=== PATIENT | female | born 1955 | race Caucasian/White ===

== ENCOUNTER 2016-12-18 16:50 | Emergency (ER) | payer BC ==
[~2016-12-18 16:50] MED LIST: *UNABLE1; ASAB PO; ATEN25 PO; BRILINTA90 MG PO; COREG3 PO; FISH-EPA1000 MG PO; FLONASE NAS; GLUCPH8 PO; GOODY'S BODY P1 EACH PO; KLOR-CON M2020 MEQ PO; KLOR-CON20 MEQ PO; L80 PO; LEVEMIR SC; LIOR10 PO; MAGOX4 PO; NEUR300 PO; NITROSTAT0.4 MG SL; NORCO1 TA2 PO; PRILO PO; PRIN2.5 PO; PROAIR HFA INH; PROVHFA INH; RESTORIL30 MG PO; TOVIAZ8 MG PO; V5 PO; VYTORIN 10/40 T1 TAB PO; XANAX1 MG PO; ZAROX2.5B PO; ZYRTEC ALLGY10 MG PO
[2016-12-18 18:02] LABS: BASOPHILS 0.5 %; BASOPHILS ABSOLUTE 0.01 10/3/uL (0.0-0.16); EOSINOPHILS 0.5 %; EOSINOPHILS ABSOLUTE 0.01 10/3/uL (0.0-0.53); LYMPHOCYTES ABSOLUTE 0.56 10/3/uL (0.67-4.30); MEAN CORPUS HGB CONC 33.1 g/dL (32.0-36.0); MEAN CORPUSCULAR HEMOGLOB 31.3 pg (26.0-34.0); MEAN PLATELET VOLUME 10.7 fL (9.2-13.0); MONOCYTES 10.7 %; MONOCYTES ABSOLUTE 0.23 10/3/uL (0.21-1.20); NEUTROPHILS 62.3 %; NEUTROPHILS ABSOLUTE 1.34 10/3/uL (2.02-8.40); RBC DISTRIBUTION WIDTH 14.4 % (12.0-16.0); RED CELL COUNT 3.83 10/6/uL (4.0-5.6)
[2016-12-18 18:05] LABS: ER CBC TAT 0 Hrs 11 Mins; HEMATOCRIT 36.3 % (36.0-48.0); MANUAL DIFF NO %; MEAN CORPUSCULAR VOLUME 94.8 fL (80-100); PLATELET COUNT 73 10/3/uL (150-400); WHITE BLOOD CELLS 2.2 10/3/uL (4.5-10.5)
[2016-12-18 18:12] LABS: INTERNATIONAL NORMAL RATI 1.2 UNITS (-); PARTIAL THROMBO TIME 27.5 SEC (22.5-37.2)
[2016-12-18 18:18] LABS: CALCIUM, SERUM 9.2 MG/DL (8.5-10.4); CHEST PAIN PROFILE TAT 0 Hrs 24 Mins; CHLORIDE, SERUM 103 MMOL/L (96-112); CO2 (CARBON DIOXIDE) 29 MMOL/L (24-34); CREATININE 0.79 MG/DL (0.55-1.02); GFR AFRICAN AMERICAN 93 ML/MIN (>=60); GFR NON AFRICAN AMERICAN 80 ML/MIN (>=60); SODIUM, SERUM 140 MMOL/L (135-148); TROPONIN I 0.03 NG/ML (<0.05)
[2016-12-18 18:19] LABS: BUN (BLOOD UREA NITROGEN) 10 MG/DL (6-23); GLUCOSE, SERUM 317 MG/DL (60-99); POTASSIUM, SERUM 4.2 MMOL/L (3.5-5.3)
== END 2016-12-18 20:40 | disposition home or self-care (01) ==
LOC: ER 16:50
PROVIDERS: Emergency Medicine
DX: J18.9 Pneumonia, unspecified organism (principal); D72.819 Decreased white blood cell count, unspecified; D69.6 Thrombocytopenia, unspecified; I10 Essential (primary) hypertension; Z88.0 Allergy status to penicillin; Z88.5 Allergy status to narcotic agent; Z79.899 Other long term (current) drug therapy
CPT/HCPCS: 71020; 80048; 83735; 83880; 84484; 85025; 85610; 85730; 93005; 99285; A9270-GY